=== PATIENT | male | born 1950 | race Caucasian/White ===

== ENCOUNTER 2016-06-30 20:48 | Observation (INO) | payer OTHER ==
[~2016-06-30] VITALS: Ht 172.7 cm; Wt 103.1 kg
--- NOTE | ~2016-06-30 | ECH ---
Transthoracic Echocardiography Report (TTE) Demographics Patient Name RON BRUNO Date of Study 07/01/2016 Patient Number [id number] Visit Number [id number] Date of 1950 Room Number 408 Accession Number [id number] Gender Male Age 66 year(s) Referring King Isael Elder MD Soldering Inspector Stephenie Beth [facility] Physician Physician Tracey Ulloa MD Zipper Joiner Physician Barak Supervising Ordering Physician King Isael Elder MD, MD/MLP Nurse Stress Detective Captain Conclusions Contractility Score Summary Normal Left Ventricular contractility was noted. Summary Technically fair exam. The estimated left ventricular ejection fraction is 60-65%. No significant valvular abnormalities. The aortic root appears mildly dilated. The maximum diameter measures 4 cm at the sinus of valsalva. Recommendation The patient was given the results of the exam during their hospital stay. Procedure Type of Study TTE procedure:Echo Complete SF. Procedure Date Date: 07/01/2016 Start: 09:20 AM Technical Quality: Adequate visualization Indications:Chest pain and Coronary artery disease. Appropriate Use Criteria: 9 Height: 68 inches Weight: 227 pounds BSA: 2.16 m Rhythm: Sinus bradycardia HR: 60 bpm BP: 127/72 mmHg M-Mode/2D Measurements LV Diastolic Dimension: 4.68 cm LV Systolic Dimension: 2.85 cm LV Septum Diastolic: 0.98 cm LV PW Diastolic: 0.91 cm AO Root Dimension: 3.12 cm Cardiac Output: 4 l/min LA Dimension: 3.79 cm Cardiac Index: 1.85 l/min*m RV Diastolic Dimension: 2.89 cm LA volume index: 25 ml/m LVOT: 2.29 cm LVOT VTI: 16.19 cm RV Base: 2.4 cm LV Stroke volume: 66.65 ml RV Mid: 2.4 cm LV Stroke volume index: 30.86 ml/m RV Length: 6.6 cm TAPSE: 2 cm TDI-S': 10 cm/s Doppler Measurements AV Mean Gradient: 1.4 mmHg MV Peak E-Wave: 0.58 m/s LVOT Peak Velocity: 0.71 m/s MV Peak A-Wave: 0.47 m/s AV Area (Continuity):2.85 cm MV P1/2t: 60.1 msec TR Velocity:1.67 m/s TR Gradient:11.16 mmHg MV Deceleration Time: 203.1 msec Estimated RAP:5 mmHg MV Area (PHT): 3.66 cm Estimated RVSP: 16 mmHg PV Peak Velocity: 0.75 m/s PV Peak Gradient: 2.27 mmHg Estimated PASP: 16.16 mmHg RA Area: 13.51 cm Findings Left Ventricle The left ventricle is normal in size . Diastolic assessment reveals normal relaxation. Right Ventricle Normal right ventricle structure and function. Left Atrium Normal left atrial size. Right Atrium Normal right atrial size. Mitral Valve Normal mitral valve structure and function. Aortic Valve Normal aortic valve structure and function. Tricuspid Valve Normal appearing tricuspid valve. Trivial tricuspid regurgitation by color Doppler. Pulmonic Valve Normal pulmonic valve structure and function. Trivial pulmonic valve regurgitation by color Doppler. Pericardial Effusion No evidence of pericardial effusion. Miscellaneous The aortic root appears mildly dilated. The maximum diameter measures 4 cm at the sinus of valsalva. Pleural Effusion No evidence of pleural effusion. Contractility Score LV regional wall motion:(0-Non visualized 1-Normal 2-Hypokinesis 3-Akinesis 4-Dyskinesis 5-Aneurysm) Signature
--- NOTE | 2016-07-01 06:04 | ER ---
ADMIT: 06/30/2016 RM/LOC: 408 [facility] MR#: [id number] [address] [address] RON BRUNO [address] [place] [address] Emergency Room Report SEX: M AGE: 66 : 1950 DATE: 06/30/2016 HISTORY OF PRESENT ILLNESS: The patient is a transfer from [facility]. The patient is a 66-year-old male with a history of hypertension and coronary artery disease, status post 2-vessel bypass. He came to the [facility] for chief complaint of intermittent on and off chest pain of the left anterior lower chest, which sometimes have started during the rest and sometimes resolved by itself. The pain was not pleuritic, but was similar to previous pain that the patient had a heart attack allegedly. At [facility], EKG did not show any ST or T changes. Troponin one time was negative. The patient was started on nitroglycerin sublingual 0.4 mg 3 times. Patient states after the second pill, he felt some degree of relief but, the pain did not relieve completely. The patient states the pains and pressure was at first 6/10 and changed right now to 3/10 to 2/10. At [place], the ER physician contacted Dr. Palmer, biometrics head in [facility] and the patient was started on a heparin drip. The patient was transferred to ER for further followups and treatments. Cardiology is already on board. PHYSICAL EXAMINATION: VITAL SIGNS: The patient has stable vitals, in no obvious pain or distress. HEAD AND NECK: Noncontributory. There is no bruit in the neck. There are also no radiating murmurs in neck. CHEST: Clear bilaterally, normal. HEART: Sounds without any gallops or murmurs. ABDOMEN: Soft, without any pulsating masses. EXTREMITIES: There is no swelling or tenderness in lower extremities. The rest of the physical exam is noncontributory. LABORATORY DATA: EKG in the ER did not show any ST or T changes or arrhythmia or Q-waves. PLAN: Dr. Palmer was contacted and patient was directly admitted to the floor for further followups and treatments of chest pain/angina rule out acute coronary syndrome. Hugh Paul MD/ sedrick JOB #: [id number] CC: Isael Palmer MD, Attending Physician Edilson Faith DO, Family Physician
[2016-07-01] MEDS ORDERED: LIPITOR40 MG PO (21:10)
[2016-07-01] MEDS ORDERED: METOPROLOL TART25 MG PO (21:10)
--- NOTE | 2016-07-07 13:58 | HP ---
ADMIT: 06/30/2016 RM/LOC: 408 [facility] MR#: [id number] [address] [address] JARRED BRUNO R [address] [place], [place] [address] History and Physical SEX: M AGE: 66 : 1950 DATE OF SERVICE: REASON FOR ADMISSION: Chest pain. Astrid Choi RN, scribing for Dr. Barak Ulloa. HISTORY OF PRESENT ILLNESS: Jarred is a very pleasant 66-year-old gentleman, who presented initially to [place] ER with complaints of chest discomfort yesterday. He has prior history of coronary artery disease status post 2- vessel bypass at [facility] in 2003. Records are pending on that. Symptoms prior to bypass include severe shortness of breath and severe decreased activity tolerance as well as orthopnea. He denies any significant chest discomfort at that time. Since then, he has not followed up with any Cardiology group and has not seen a primary care physician in at least a year. He is not taking any medications. He does have history of hypertension and hyperlipidemia as well. No tobacco use but does drink 4-5 beers a day. Jarred presented to [facility] via ambulance from [place] [facility]. Yesterday, he described after dinner, he began having left chest pressure that would progressively get worse throughout the day and after dinner it intensified. He was extremely uncomfortable, but does deny any shortness of breath, radiation of his pressure, nausea, lightheadedness, diaphoresis, or palpitations. 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 Enzymes x1 were negative there and EKG did not show any significant ST-T changes. He received nitroglycerin x3, which did decrease his symptoms initially, but did not resolve his pain. He also got GI cocktail which made no changes as well as morphine that he did not have any response to. He was placed on a heparin drip and on arrival to [facility], cardiac enzymes were rechecked this morning showing normal set value. Echocardiogram performed this morning demonstrates ejection fraction 60% to 65% with no valvular abnormalities and no significant wall motion abnormalities. He continues to describe mild chest discomfort, pressure this morning and stated he did have an episode of intense chest pressure last night but did not notify any nurses. PAST MEDICAL HISTORY: Hypertension, hyperlipidemia, coronary artery disease status post 2 vessel bypass in 2003, chronic sinus issues, and fatty liver history. PAST SURGICAL HISTORY: Two vessel bypass and a plate in his right arm and shoulder. ALLERGIES: PENICILLIN. MEDICATIONS: No home medications. He is currently on a heparin drip and 81 mg aspirin. FAMILY HISTORY: Significant family history of premature coronary artery ADMIT: 06/30/2016 RM/LOC: 408 [facility] MR#: [id number] [address] [place] [id number] [place] [address] History and Physical SEX: M AGE: 66 : 1950 disease in multiple family members including multiple brothers having one brother Aftab who had bypass at the age of 47, brother Cuate who from an ID at the age of 56. Brother Charlotte who had stents at the age of 56. His father at the age of 75 from a myocardial infarction and multiple males on his father side, uncles with coronary disease prematurely. Denies family history of diabetes, cancer, or stroke. SOCIAL HISTORY: Jarred lives with his significant other. 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 He drinks coffee on a regular basis. He drinks 4-5 beers daily. Denies any history of drug use. REVIEW OF SYSTEMS: GENERAL: Denies fatigue, fever, chills, sweats, rash, or weight loss. EYES: Denies double vision, blurred vision, cataracts, or glaucoma. ENT: Denies hearing loss or problems with mouth or throat. Chronic sinus issues. PULMONARY: Denies cough, sputum production, asthma, emphysema or bronchitis. Denies snoring loudly, wakefulness at night, or fatigue upon awakening. GASTROINTESTINAL: Denies heartburn or difficulty swallowing. No change in bowel habits. Denies dark or bloody stools. No history of ulcers, hiatal hernia, or gallbladder disease. History of fatty liver. GENITOURINARY: Denies dysuria, hematuria, nocturia, urinary tract infection, or kidney stones. Denies history of renal insufficiency or failure. MUSCULOSKELETAL: Denies history of arthritis or gout. Denies muscle or joint pains. ENDOCRINE: Denies history of thyroid dysfunction or diabetes. HEMATOLOGIC: Denies history of anemia, easy bruising, or cancer. NEUROLOGIC: Denies chronic headaches, dizziness, syncope, stroke, seizures or numbness or tingling. PSYCHIATRIC: Denies history of mental illness or feelings of depression. PHYSICAL EXAMINATION: VITAL SIGNS: Blood pressure 127/72, heart rate 63, respirations 16, temperature 96.9, and oxygenation 96% on room air. SKIN: [place], warm and dry. EYES: Sclerae clear. No xanthelasmas. ENT: Oral mucosa is pink and moist. No jugular venous distention or carotid bruits. CHEST: Respirations are even and unlabored. Lungs are clear to auscultation. HEART: Regular rate and rhythm. Normal S1, S2. No murmurs, rubs or gallops. ABDOMEN: Soft and nontender. MUSCULOSKELETAL: Gait is normal. EXTREMITIES: Peripheral pulses palpable. No clubbing, cyanosis or edema. PSYCHIATRIC: Alert and oriented. Mood and affect are appropriate. DIAGNOSTIC DATA: Chest x-ray in [place] did not demonstrate any significant abnormalities. Lab in [place] 06/30 showed sodium 136, potassium 3.7, BUN 16, creatinine 1.53, glucose 122, AST 30, and ALT 46. White blood cell count 5.96, hemoglobin 15.7, hematocrit 46.5, and platelets 149. ADMIT: 06/30/2016 RM/LOC: 408 [facility] MR#: [id number] [address] [facility] [address] [place] [id number] JARRED BRUNO [address] [place] [address] History and Physical SEX: M AGE: 66 : 1950 This morning total cholesterol 165, triglycerides 81, HDL 64, and LDL 85. Two sets of cardiac enzymes have been performed. The 2nd set is negative at 202. CK-MB 2.1 and troponin less than 0.015. First set was negative as well. ASSESSMENT/PLAN: 1. Chest pain. Symptoms are suggestive of angina by EKG, echo, and 2 sets of enzymes have been normal. I will add medical treatment with omeprazole 40 mg p.o. x1 now, metoprolol 25 mg p.o. b.i.d., first dose now as well as GI cocktail now. I would like him to ambulate in the hallways and to see if he has any worsening shortness of breath or chest discomfort. I discussed with him that if he does have worsening symptoms, then I would recommend proceeding with left heart catheterization. If his chest pain is better, then I would recommend outpatient stress test and discharge later today. 2. Coronary artery disease status post bypass 2003. 3. Hypertension. I will also add Lipitor 40 mg p.o. daily to his medication regimen for risk factor modification. "I have read and agree with the documentation that has been completed regarding this visit. By signing this record, I attest that the documentation was completed in my physical presence and is an accurate record of the encounter." Astrid Choi RN / Barak Ulloa MD / sedrick JOB #: [id number] CC: Isael Palmer, Attending Physician Edilson Faith, Family Physician Edilson Faith, DO
== END 2016-07-01 15:30 | disposition home or self-care (01) ==
LOC: ER 20:48 → 4PCU 21:14
PROVIDERS: ADMIT Internal Medicine
DX: R07.9 Chest pain, unspecified (principal); I25.10 Atherosclerotic heart disease of native coronary artery without angina pectoris; I10 Essential (primary) hypertension; E78.5 Hyperlipidemia, unspecified; Z88.0 Allergy status to penicillin; Z79.82 Long term (current) use of aspirin; Z79.899 Other long term (current) drug therapy; Z95.1 Presence of aortocoronary bypass graft

== ENCOUNTER → 2016-07-04 | Outpatient (CLI) | payer OTHER ==
[~2016-07-04] MED LIST: LIPITOR40 MG PO; METOPROLOL TART25 MG PO
--- NOTE | ~2016-07-04 | CST ---
Cardiac Perfusion Imaging Demographics Patient Name DAMION Mohan Gender Male Patient Number [id number] Race Visit Number [id number] Ethnicity Corporate ID Room Number Accession Number [id number] Height 68 inches Date of 1950 Weight 225 pounds Age 66 year(s) BSA 2.15 m Referring Physician Vianney Parker MD BMI 34.21 kg/m Interpreting Physician [facility] Date of study 07/04/2016 Shivani Serrano MD Supervising MD/MLP Shivani Serrano MD NM Technologist Lucía Guardado Ordering Physician Laila NOBLE Stress Obinnakatie Cancino product safety technician Stress ECG Reading Shivani Serrano MD Nurse [place] Physician Paulino Culp The procedure was explained in detail to the patient. Risks, complications and alternative treatments were reviewed. Written consent was obtained. Medications Reviewed with Patient prior to Procedure. Procedure Procedure Type: Nuclear Stress Test:Pharmacological, Lexiscan Procedure Start time: 07/04/2016 07:30 Indications: Chest pressure, History of CABG, Hyperlipidemia, Hypertension and Family history of coronary artery disease. Risk Factors The patient risk factors include:prior CABG on 06/26/2003;treated hypercholesterolemia, treated hypertension, family history of premature CAD and dyslipidemia. Conclusions Summary Perfusion Images: The overall quality of the study is good. Left ventricular cavity is noted to be normal on the stress and rest studies. There is no evidence of abnormal lung activity. The right ventricle is not visualized and cannot be assessed. Stress SPECT images demonstrate homogenous tracer distribution throughout the myocardium. Rest SPECT images demonstrate homogenous tracer distribution throughout the myocardium. Gated SPECT imaging reveals normal myocardial thickening and wall motion. The left ventricular ejection fraction was calculated to be 61%. Impression ECG portion of stress test is clinically negative for ischemia by diagnostic criteria. Myocardial perfusion imaging is normal. Overall left ventricular systolic function was normal without regional wall motion abnormalities. There are no previous studies for comparison. Stress Protocols Resting ECG Normal sinus rhythm. Resting HR:50 bpm Resting BP:122/70 mmHg Stress Protocol:Pharmacologic Predicted HR: 156 bpm Test duration: 06:00 min Reason for termination:Infusion complete ECG Findings No ECG changes suggestive of ischemia. Arrhythmias Occasional PVC's. Complications Procedure complication: None. Stress Interpretation SWITCHED TO LEXISCAN Appropriate hemodynamic response to Lexiscan. No significant ST-T wave changes with Lexiscan. ECG portion is negative for ischemia by diagnostic criteria. Imaging Results Summed scores - Summed stress score: 0 - Summed rest score: 0 - Summed difference score: 0 Stress ejection Ejection fraction:61 % EDV :92 ml ESV :36 ml Stroke volume :56 ml LV mass :119 gr Imaging Protocols Rest Stress Isotope:Tc99m Myoview IV Isotope: Tc99m Myoview IV Isotope dose:10.5 mCi Isotope dose:31.6 mCi Date:07/04/2016 06:30 Date:07/04/2016 08:05 Technique: Gated SPECT Supine Scan Time:30 minutes post injection Scan Time:45-60 minutes post injection Procedure Medications - Regadenoson (Lexiscan) 0.4 mg IV over 10-15 sec. I.V. 0.4 mg. Medications administered per verbal order and read back to physician prior to administration. Medical History Admission Data Admission date: 07/04/2016 Admission Time: 06:07 Hospital Status: Outpatient. Signatures
== END | disposition home or self-care (01) ==
LOC: CARD 06:07
DX: R07.9 Chest pain, unspecified (principal)